=== PATIENT | female | born 1995 | race Caucasian/White ===

== ENCOUNTER 2017-11-22 09:48 | Outpatient (CLI) | payer OTHER ==
[~2017-11-22] VITALS: Ht 160 cm; Wt 48.1 kg
[2017-11-22] MEDS ORDERED: MONONESSA1 EACH PO (09:53)
[2017-11-22 10:43] VITALS: BP 111/76
== END 2017-11-22 10:44 ==
LOC: M.ERS 10:44
DX: S93.401A Sprain of unspecified ligament of right ankle, initial encounter (principal); M25.571 Pain in right ankle and joints of right foot; R10.9 Unspecified abdominal pain; X58.XXXA Exposure to other specified factors, initial encounter; Y93.89 Activity, other specified; Y92.89 Other specified places as the place of occurrence of the external cause; Y99.8 Other external cause status